=== PATIENT | male | born 1940 | race Caucasian/White ===

== ENCOUNTER 2018-04-18 11:51 | Day surgery (SDC) | payer MEDICARE, BC ==
[2018-04-18] MEDS ORDERED: diphenhydrAMINE 25 MG CAP PO SCH (13:30)
[2018-04-18] MEDS ORDERED: Acetaminophen 500 MG TAB PO SCH (13:30)
[2018-04-18 17:53] VITALS: BP 101/50; TEMP 97.5
[2018-04-18 18:09] LABS: #Eosinphils 0.2 thou/uL (0.0-0.7); #Monocytes 0.9 thou/uL (0.11-0.59); #Neutrophils 4.5 thou/uL (1.40-6.50); %Basophils 0.7 % (0.0-1.0); %Eosinophils 3.6 % (0.0-10.0); %Lymphocytes 14.7 % (21.0-51.0); %Monocytes 12.8 % (0.0-10.0); %Neutrophils 68.1 % (42.0-75.0); Hemoglobin 8.6 g/dL (14.0-18.0); Red Blood Cell (RBC) Count 2.23 mill/uL (4.70-6.10); White Blood Cell (WBC) Count 6.7 thou/uL (4.8-10.8)
[2018-04-18 18:42] LABS: Anisocytosis SLIGHT = 6-15 cells (100X) (0-5/hpf); MDiff Complete? YES; Macrocytosis SLIGHT = 6-15 cells (100X) (0-5/hpf); Mean Corpuscular Hemoglobin 38.4 pg (27.0-31.0); PLT Morphology Comment Appears Adequate; Platelet Count 178 thou/uL (130-400); RBC Distribution Width 16.6 % (11.5-14.5)
== END 2018-04-18 17:58 | disposition home or self-care (01) ==
LOC: SDC/OP 11:51 → T4-B 11:54 → SDC/OP 17:58
PROVIDERS: ATTEND Family Medicine
DX: D64.9 Anemia, unspecified (principal); D69.6 Thrombocytopenia, unspecified; Z88.0 Allergy status to penicillin; Z88.2 Allergy status to sulfonamides
CPT/HCPCS: 36430; 85025; 86850; 86900; 86901; 86920; P9016; 36415